=== PATIENT | male | born 1970 | race Two or more races ===

== ENCOUNTER 2020-10-01 13:59 | Emergency (ER) | payer OTHER ==
[~2020-10-01] VITALS: Ht 175.3 cm; Wt 113.4 kg
[2020-10-01] MEDS ORDERED: ceFAZolin 1GM/50ML 50 ML IV ONE ×2 (14:15→20:00)
[2020-10-01] MEDS ORDERED: fentaNYL CITRATE 100 MCG/2 ML VL IV ONE ×2 (14:15→15:45)
[2020-10-01] MEDS ORDERED: TETANUS-DIPTH-ACEL PERTUSSIS 0.5ML SYR Tdap IM ONE (14:15)
[2020-10-01 15:20] LABS: Hematocrit 39.7 % (41.0-53.0); Hemoglobin 14.2 g/dL (13.5-17.5)
[2020-10-01] MEDS ORDERED: MORPHINE SULFATE 4 MG/ML SYR/VIAL ONE ×2 (19:31→20:03)
[2020-10-01] MEDS ORDERED: MORPHINE SULF INJ 2 MG/ML SYRINGE 1ML ONE ×2 (19:31→20:02)
[2020-10-01] MEDS ORDERED: MORPHINE SULFATE 10 MG/ML INJ 1ML SDV IV ONE ×4 (19:45→20:15)
[2020-10-01] MEDS ORDERED: BUPIVACAINE 0.25% INJ 50ML VIAL IJ ONE (19:45)
[2020-10-01] MEDS ORDERED: BUPIVACAINE 0.75% INJ 10ML MPV SDV IJ ONE (19:48)
[2020-10-01] MEDS ORDERED: LIDOCAINE 1% HCL (LOCAL ANESTH.) INJ 20ML MDV ONE (20:01)
[2020-10-01] MEDS ORDERED: LIDOCAINE 1% HCL (LOCAL ANESTH.) INJ 20ML MDV ID ONE (20:15)
[2020-10-01] MEDS ORDERED: BACITRACIN TOP OINT 1 UD PKG TOP ONE (21:15)
[2020-10-01] MEDS ORDERED: NEOMYCIN-BACITRACIN-POLYM UNITDOSE PKG TOP OINT TOP ONE (21:20)
[2020-10-01] MEDS ORDERED: NEOMYCIN-BACITRACIN-POLYM 15GM TOP OINT TOP ONE (21:24)
[2020-10-01] MEDS ORDERED: BACITRACIN INJ 50000 UNIT VIAL TOP ONE (21:30)
[2020-10-01 22:06] VITALS: BP 111/62
== END 2020-10-01 22:55 | disposition home or self-care (01) ==
LOC: ER 13:59
DX: S68.110A Complete traumatic metacarpophalangeal amputation of right index finger, initial encounter (principal); X58.XXXA Exposure to other specified factors, initial encounter; Y93.89 Activity, other specified; Y92.89 Other specified places as the place of occurrence of the external cause; Y99.8 Other external cause status
CPT/HCPCS: 36415; 73130; 85014; 85018; 86850; 86900; 86901; 90471; 90715; 96365; 96375; 96376; 99285; J0690; J2001; J2270; J3010; J3490; A4565

== ENCOUNTER 2023-09-27 06:22 | Emergency (ER) | payer OTHER ==
[~2023-09-27] VITALS: Ht 175.3 cm; Wt 100.0 kg
[2023-09-27 07:36] VITALS: BP 119/84; PULSE 89; RESP 18; O2SAT 98
[2023-09-27] MEDS ORDERED: CLIN300C70 PO (07:54)
[2023-09-27] MEDS ORDERED: IBUP-1456 PO (07:54)
[2023-09-27] MEDS ORDERED: IBUPROFEN 800 MG TAB PO ONE (08:00)
[2023-09-27] MEDS ORDERED: cefTRIAXone SOD 1,000 MG VL IM ONE (08:15)
[2023-09-27 08:35] VITALS: TEMP 98.5
== END 2023-09-27 08:35 | disposition home or self-care (01) ==
LOC: ER 06:22
DX: K04.7 Periapical abscess without sinus (principal); I10 Essential (primary) hypertension; Z79.899 Other long term (current) drug therapy
CPT/HCPCS: 96372; 99283; J0696